=== PATIENT | male | born 1975 | race Two or more races ===

== ENCOUNTER 2025-08-01 09:30 | Outpatient (AMB) | payer OTHER, SELFPAY ==
--- NOTE | 2025-08-01 09:35 | A.PHYSOV_ITS ---
Vital Signs 08/01/25 09:36 Height 5 ft 9 in Weight 288 lb BMI 42.5 Intake Visit Reasons: NPV [facility] REF-LEFT LUMBAR Intake Note: Patient is a 50 year old male in office today as new patient for low back pain. Disabilities Caregiver Services: Disabilities Caregiver Offered & Declined Allergies No Known Allergies Allergy (Verified 08/01/25 09:37) HPI Comments Details: History of Present Illness The patient is a 50-year-old male presenting with back pain and left leg pain. The back pain began on May 28, 2025, with no specific inciting event noted, he was working in the [employer] when it happened. The pain radiates to the left leg, particularly affecting the left big toe, L5 dermatomal distribution, causing weakness. The patient has undergone an X-ray in the emergency room, but no MRI has been performed yet. I reviewed the emergency room records and primary care notes. X-rays of his chest were obtained, he did not have x-rays of lumbosacral spine. He has been using various medications including ibuprofen, methocarbamol, and oxycodone for pain management. The patient has been experiencing these symptoms for approximately two months and has been waiting for a specialist appointment. He was instructed on home exercises by his primary care physician. He has been performing physician guided home exercises for a couple of months. Pain Description - Onset: Pain began on May 28 - Quality: Radiating pain to the left leg - Location: Back and left leg, particularly the left big toe - Exacerbating factors: Not explicitly mentioned - Relieving factors: Use of ibuprofen, methocarbamol, and oxycodone Results - Imaging: X-ray performed in the emergency room [facility] Medical History (Updated 08/01/25 @ 10:00 by Deandre Bowles DO) Lumbar disc herniation Lumbar radiculitis Review of Systems Narrative Review of Systems - Musculoskeletal: Reports back pain and left leg pain - Neurological: Reports weakness in the left big toe Denies change in bowel and bladder habits, denies fever or chills Physical Exam Exam Exam: Physical Exam - Neurological: Weakness in the left big toe Gait was antalgic on the left side. Dural tension signs were positive on the left side. Neurological examination reveals weakness of the left EHL 3+/5. Patellar and Achilles reflexes were uniformly diminished, but symmetric. SI provocative maneuvers were negative. Pain with palpation over left lumbar paraspinal muscles. Vital Signs: BMI result Body Mass Index 42.5 Assessment & Plan Assessment & Plan (1) Lumbar radiculitis: Code(s): M54.16 - Radiculopathy, lumbar region Category: Medical (2) Lumbar disc herniation: Code(s): M51.26 - Other intervertebral disc displacement, lumbar region Category: Medical Plan Pain Management - Analgesia: Current medications include ibuprofen, methocarbamol, and oxycodone - Adverse Effects: None - Activities of Daily Living: Limited by pain, patient has been out of work on FMLA Plan Patient was informed and verbally consented to the use of an ambient scribe for clinic note documentation during this visit. 1. Back Pain The patient will be scheduled for an MRI and x-rays to further evaluate the cause of the back pain. Current pain management includes ibuprofen, methocarbamol, and oxycodone. 2. Left Leg Pain The left leg pain, particularly affecting the left big toe, will be further a ssessed with the planned MRI. Pain management currently involves ibuprofen, methocarbamol, and oxycodone. Discussion Notes I discussed with the patient the need for an MRI to further evaluate the back and left leg pain, as no MRI has been performed yet. We reviewed the current pain management regimen, which includes ibuprofen, methocarbamol, and oxycodone. The patient was informed about the process of obtaining insurance approval for the MRI and the expected timeline. To the best of my understanding [facility] paperwork has been submitted to his primary care office. I will be willing to fill out the paperwork if needed. Patient Instructions - Continue current pain medications as prescribed. - Await contact regarding MRI scheduling and insurance approval. Orders: Orders XR lumbar spine 4V min Today M51.26 - Other intervertebral disc displacement, lumbar region, M54.16 - Radiculopathy, lumbar region MR lumbar spine wo con Today M51.26 - Other intervertebral disc displacement, lumbar region, M54.16 - Radiculopathy, lumbar region Coding Level of Care Code New Pt Level 4 (41375) Complex EM visit Add On G2211 Diagnoses Lumbar radiculitis M54.16 Lumbar disc herniation M51.26
[2025-08-01 09:36] VITALS: BMI 42.5
--- OUTSIDE RECORDS SUMMARY | 2025-08-01 17:30 | XMS_ITS | Clinical Summary ---
Author Organization [facility] Address [address] [place], [place] [address] Phone Care Team Providers Care Pipe Fitter Ammonia Name Role Phone Rosanne Andrade Primary Care Provider [phone] Allergies No known active allergies Medications lisinopril (PRINIVIL,ZESTR IL) 20 MG tablet Take 20 mg by mouth. 0 Active ibuprofen (ADVIL,MOTRIN) 600 MG tablet Take 1 tablet (600 mg total) by mouth every 6 (six) hours as needed for pain (specific location in comments). 15 tablet 1 Active chlorhexidine (PERIDEX) 0.12 % solution Use as directed 15 mL in the mouth or throat 2 (two) times a day. 120 mL 1 Active nicotine (NICODERM CQ) 21 mg/[address] 1 patch onto the skin daily. Apply to a clean, dry, hairless site on the upper arm or hip. 14 patch 1 Active amoxicillin-cla vulanate (AUGMENTIN) 875-125 mg per tablet Take 1 tablet (875 mg of amoxicillin total) by mouth 2 (two) times a day. 10 tablet 1 Active Active Problems Problem Noted Date Diagnosed Date Dental abscess 07/22/2021 Odontogenic infection of jaw 07/22/2021 Immunizations Immunization Administration Dates Next Due Influenza Quadrivalent Prese rvative Free IM 07/24/2021(Deferred: Patient Refused) Social History Tobacco Use Types Packs/Day Years Used Date Smoking Tobacco: Every Day Smokeless Tobacco: Never Alcohol Use Standard Drinks/Week Comments Yes 0 (1 standard drink = 0.6 oz pur e alcohol) Education Answer Date Recorded Are you interested in more education? Not on ramakrishna e 01/09/2023 Are you concerned about learning? Not on file 01/09/2023 No 01/09/2023 No 01/09/2023 Digital Access Answer Date Recorded No 02/07/2023 No 02/07/2023 No 02/07/2023 Reliable internet access at home? Not on file 02/07/2023 Device with a working camera? Not on file Sex and Gender Information Value Date Recorded Sex Assigned at Not on file Legal Sex Male 5:58 PM EST Gender Identity Not on file Sexual Orientation Not on file Last Filed Vital Signs Vital Sign Reading Time Taken Comments Blood Pressure 160/103 07/24/2021 8:32 AM EST Lisinopril given as ordered Pulse 84 07/24/2021 8:32 AM EST Temperature 35.9 C (96.7 F) 07/24/2021 8:32 AM EST Respiratory Rate 16 07/24/2021 8:32 AM EST Oxygen Saturation 99% 07/24/2021 8:3 2 AM EST Inhaled Oxygen Concentration - - Weight 131.5 kg (290 lb) 07/22/2021 7:5 2 PM EST Height 167.6 cm (5' 6 ) 07/22/2021 7:52 PM EST Body Mass Index 46.81 07/22/2021 7:52 PM EST Plan of Treatment Health Maintenance Due Date Last Done Comments Adult Td,Tdap Booster 1975 DEPRESSION SCREENING 1987 SMOKING Hx and SMOKELESS TOBACCO SCREENING 1988 HEPATITIS C SCREENING 1993 HIV ONE-TIME SCREENING (18-6 5 YEARS) 1993 PNEUMOCOCCAL VACCINES (50+ years) (1 of 2 - PCV) 1994 COLOGUARD 2020 COLONOSCOPY 2020 COLORECTAL CANCER SCREENING 2020 FIT TEST 2020 FOBT 2020 SIGMOIDOSCOPY 2020 VIRTUAL COLONOSCOPY 2020 CREATININE LEVEL 07/24/2022 07/24/2021, 07/23/2021, 07/21/2021 POTASSIUM LEVEL 07/24/2022 07/24/2021, 07/23/2021, 07/21/2021 ZOSTER VACCINES (1 of 2) 2025 INFLUENZA VACCINE (#1) 2025 04/26/2017 COVID-19 VACCINE (1 - 2024-2 6 season) 2025 LIPID PANEL 06/11/2025 06/11/2020 RSV VACCINE (1 - 1-dose 75+ series) 2050 HEPATITIS A VACCINES Aged Out No long er eligible based on patient's age to complete this topic HIB VACCINES Aged Out No longer eligi ble based on patient's age to complete this topic IPV VACCINES Aged Out No longer eligi ble based on patient's age to complete this topic MENINGOCOCCAL VACCINES (ACWY) Aged Out No longer eligible based on patient's age to complete this topic MENINGOCOCCAL VACCINES (B) Aged Out N o longer eligible based on patient's age to complete this topic Medical Devices Not on file Procedures Procedure Name Priority Date/Time Associated Diagnosis Comments BASIC METABOLIC PANEL (BMP) Routine 07/24/2021 6:00 AM EST from Last 3 Months or Most Recently Relevant to Health Maintenance Results * (ABNORMAL) Basic metabolic panel (07/24/2021 6:00 AM EST) SODIUM 139 135 - 145 mmol/L [facility] POTASSIUM 3.9 3.4 - 5.0 mmol/L [facility] CHLORIDE 102 98 - 108 mmol/L [facility] CO2 19(L) 23 - 32 mmol/L [facility] BUN 9 8 - 25 mg/dL [facility] CREATININE 0.66 0.60 - 1.50 mg/dL [facility] GLUCOSE 80 70 - 110 mg/dL [facility] CALCIUM 8.9 8.5 - 10.5 mg/dL [facility] EGFR 116 >59 mL/min/1.7 3m2 [facility] Comment:Estimated glomerular filtration rate calculated using the CKD-EPI equation. ANION GAP 18(H) 3 - 17 mmol/L [facility] Blood 07/24/2021 6:00 AM EST 07/24/2021 7:04 AM EST us Alexandr Najera MD LAB BLOOD [place]KR [place] [address] from Last 3 Months or Most Recently Relevant to Health Maintenance Insurance HE[employer]ETY NET PARTIAL HEALTH SAFETY NET PARTIAL HEALTH SAFETY NET PARTIAL HEALTH SAFETY NET PARTIAL HEALTH SAFETY NET PARTIAL HEALTH SAFETY NET PARTIAL HEALTH SAFETY NET PARTIAL HEALTH SAFETY NET PARTIAL HEALTH SAFETY NET PARTIAL Advance Directives For more information, please contact: [phone] (9AM - 5PM [place], Wednesday-Wednesday) * Full Code (Latest Code Status on File) Date Activated Date Inactivated Comments 07/22/2021 8:33 AM Question Answer Comments Code Status Confirmed With: Patient Code Status Communicated To: Inpatient Attending Care Teams Pipe Fitter Ammonia Relationship Specialty Start Date End Date Rosanne Andrade PA [facility] [place] [address] PCP - General Internal Medicine 07/21/21 Additional Source Comments The information contained in this document represents components of the legal health record. It is not the complete legal health record.[facility]
== END 2025-08-01 10:00 | disposition home or self-care (01) ==
LOC: HO.HPHYS 09:30
PROVIDERS: PCP Physician Assistant; Visit Provider Physical Medicine & Rehabilitation
DX: M54.16 Radiculopathy, lumbar region (principal); M51.26 Other intervertebral disc displacement, lumbar region
CPT/HCPCS: 99204; G2211

== ENCOUNTER 2025-08-01 09:30 | Outpatient (REF) | payer OTHER, SELFPAY ==
--- NOTE | ~2025-08-01 | XR_ITS ---
EXAMINATION: XR LUMBOSACRAL SPINE WITH OBLIQUES CLINICAL INFORMATION: M54.16 - Radiculopathy, lumbar region COMPARISON: None available. TECHNIQUE: AP oblique and lateral views FINDINGS: Multilevel marginal osteophyte formation and syndesmophyte formation. Multilevel endplate sclerosis and decreased intervertebral disc height throughout the axial skeleton pronounced at L4-5 and L5-S1 as well as the lower thoracic spine. Hypertrophy of the facet joints at L5-S1. Prominent transverse processes of L5 extending to the iliac crests. S-shaped curvature of the thoracolumbar spine. No acute cortical disruption or gross malalignment. Vascular clips in the right upper quadrant abdomen. XR/XR lumbar spine 4V min IMPRESSION: Multilevel thoracolumbar spondylosis, moderate to severe. Electronically signed by: Hood Duque MD 08/01/2025 11:03 AM [facility]
== END 2025-08-01 09:31 | disposition home or self-care (01) ==
LOC: HO.XRAY 09:30
PROVIDERS: PCP Physician Assistant; Visit Provider Physical Medicine & Rehabilitation
DX: M51.16 Intervertebral disc disorders with radiculopathy, lumbar region (principal); Z79.1 Long term (current) use of non-steroidal anti-inflammatories (NSAID); Z79.891 Long term (current) use of opiate analgesic
CPT/HCPCS: 72110

== ENCOUNTER → 2025-08-01 10:31 | Outpatient (BNV) | payer OTHER, SELFPAY | PROVIDERS: PCP Physician Assistant; Visit Provider Radiology Diagnostic Radiology | DX: M47.25 Other spondylosis with radiculopathy, thoracolumbar region (principal) | CPT/HCPCS: 72110 ==

== ENCOUNTER 2025-08-30 13:41 | Outpatient (AMB) | payer OTHER, SELFPAY ==
[2025-08-30 13:42] VITALS: BMI 42.5
--- NOTE | 2025-08-30 13:42 | A.PHYSOV_ITS ---
Vital Signs 08/30/25 13:42 Height 5 ft 9 in Weight 288 lb BMI 42.5 Intake Visit Reasons: MRI followup Intake Note: Patient is a 50 year old male in office today for a follow up after mri. Allergies No Known Allergies Allergy (Verified 08/30/25 13:44) HPI Comments Details: History of Present Illness The patient is a 50 year old male presenting with a follow-up for persistent lower back and left leg pain. He reports pain radiating down his left leg in an L5 dermatomal distribution. He reports a similar episode approximately 13 years ago, which resolved for years after receiving an injection. For the current symptoms, he has been performing physician-guided home exercises and takes ibuprofen, methocarbamol, and oxycodone for pain. The pain is exacerbated by prolonged standing and improves with sitting. He has been out of work for three months due to the pain. He returns with the results of the lumbosacral spine MRI from 08/16/2025 demonstrating moderate central canal stenosis at the L4-L5 level and moderate to severe neural foraminal stenosis at the L4-L5 level and severe bilateral neural foraminal narrowing at the L5-S1 level with encroachment of exiting bilateral L5 nerve roots. Pain Description - Location: Lower back and left leg. - Radiation: Pain radiates down the left leg into the great toe, following an L5 dermatomal distribution. - Exacerbating Factors: Pain is worse with prolonged standing. - Relieving Factors: Pain is relieved with sitting. - Interference with function: The patient has been unable to work for 3 months due to his pain. Results - Imaging: - Lumbar spine MRI (08/16/2025): Findings were independently reviewed and showed degenerative changes, moderate central canal stenosis at L4-L5, moderate to severe bilateral neuroforaminal narrowing at L4-L5, and severe bilateral neuroforaminal narrowing at L5-S1 with encroachment of the bilateral L5 nerve roots. [facility] Medical History (Updated 08/30/25 @ 14:12 by Deandre Bowles DO) Spinal stenosis, lumbar region with neurogenic claudication Lumbar disc herniation Lumbar radiculitis Surgical History (Updated 08/30/25 @ 13:46 by Belen Snow MA) History of surgery on arm History of bladder surgery Social History (Updated 08/30/25 @ 13:45 by Belen Snow MA) Household Members: Spouse Alcohol intake: current Alcohol intake frequency: does not drink Patient Tobacco Use Status: Current everyday Tobacco user Use of substances other than those prescribed or required for medical reasons: No Current occupational status: employed Current occupation: multimedia coordinator Review of Systems Narrative Review of Systems - Musculoskeletal: Reports persistent lower back pain. - Neurological: Reports pain radiating into the left leg and great toe. - All other systems were reviewed and are negative. Physical Exam Exam Exam: Physical Exam - Constitutional: Alert and oriented. - Musculoskeletal: Movement of the left leg was assessed. - Neurological: Pain is localized to the L5 dermatome distribution, affecting the great toe of the left foot. Neurological examination reveals mild weakness of the left EHL. He was able to ambulates without antalgia. Gait was waddling. Heel walk and toe walk were not tested. Dural tension signs were negative. Patient demonstrated no upper motor neuron signs. Vital Signs: BMI result Body Mass Index 42.5 Assessment & Plan Assessment & Plan (1) Lumbar radiculitis: Code(s): M54.16 - Radiculopathy, lumbar region Category: Medical (2) Lumbar disc herniation: Code(s): M51.26 - Other intervertebral disc displacement, lumbar region Category: Medical (3) Spinal stenosis, lumbar region with neurogenic claudication: Code(s): M48.062 - Spinal stenosis, lumbar region with neurogenic claudication Category: Medical Plan Pain Management - Analgesia: The patient currently uses ibuprofen, methocarbamol, and oxycodone. - He was previously prescribed oxycodone 5 mg in May. - Affect: The patient expressed frustration with being out of work and the timing of his visit during the holidays, which delays further intervention. - Activities of Daily Living: His pain has prevented him from working for the past 3 months. - Adverse effects: Not discussed. - Aberrant Drug-Related Behaviors: None noted. Plan Patient was informed and verbally consented to the use of an ambient scribe for clinic note documentation during this visit. Low Back Pain With Left-Sided Radiculopathy The patient's persistent low back and left leg pain is consistent with the lumbar spine MRI findings from August 16, 2025, which show significant degenerative changes. Specifically, he has moderate central canal stenosis and lkhqiaoy-yp-ecktcj bilateral neuroforaminal narrowing at L4-L5, as well as severe bilateral neuroforaminal narrowing at L5-S1 with L5 nerve root encroachment, which explains his radicular symptoms. Treatment options were discussed, including continuing conservative management, proceeding with a therapeutic injection, or obtaining a surgical consultation. The patient elected to proceed with a guided injection, given his positive response to a similar intervention over a decade ago. An appointment for the left L5 transforaminal epidural steroidal injection will be scheduled, pending insurance authorization from [employer], which will likely take place after the . As a bridging therapy, a prescription for a higher dose of oxycodone will be provided, as his current regimen is providing insufficient relief. Risks and benefits of the procedure were discussed with the patient. Potential alternative measures were also discussed. Patient understands that the procedure is completely elective. Potential side effects associated with injectable medications were discussed. All questions were answered to the kyrstal phillips's satisfaction. Discussion Notes I reviewed the patient's recent lumbar spine MRI results with him, explaining that the findings of lizowhnj-li-rmtbqd stenosis at L4-L5 and L5-S1 are consistent with a pinched nerve causing his left leg pain. I clarified that this is a chronic issue that has developed over many years. We discussed three primary treatment options: no intervention, a guided steroid injection, or a surgical consultation. The patient recalled a positive outcome from an injection about 13 years ago and agreed to try this option again. I informed him that the procedure requires insurance pre-authorization and cannot be scheduled immediately due to the upcoming holidays and my personal leave, with the earliest availability being after the . I agreed to prescribe a stronger dose of oxycodone to help manage his pain in the interim and acknowledged that medication alone is unlikely to be a permanent solution for a mechanical issue like a pinched nerve. We will proceed with requesting authorization for the injection, and the patient understands he can cancel the appointment if the new medication resolves his symptoms completely. Patient Instructions - You will be given a prescription for a stronger pain medicine. - Take this as directed to help with your pain until we can do the procedure. - Continue doing your home exercises for your back. - My office will contact your insurance, [employer], to get approval for an injection in your lower back. - We will call you to schedule this injection, but it will likely be after the hol. - If the new medicine makes your pain go away completely, you can call us to cancel the injection appointment. Medications: New oxycodone-acetaminophen 7.5-325 mg Partial Fill upon patient request. 1 tab PO Q6H PRN 28 tabs 0RF pain 7 days M48.062 - Spinal stenosis, lumbar region with neurogenic claudication, M51.26 - Other intervertebral disc displacement, lumbar region, M54.16 - Radiculopathy, lumbar region Coding Level of Care Code Est Pt Level 4 (58329) Add On Problem Visit Only Diagnoses Lumbar radiculitis M54.16 Lumbar disc herniation M51.26 Spinal stenosis, lumbar region with neurogenic claudication M48.062
--- OUTSIDE RECORDS SUMMARY | 2025-08-30 17:54 | XMS_ITS | Clinical Summary ---
Author Organization [facility] Address [address] [place], [place] [id number] Phone Care Team Providers Care Skin Installer Name Role Phone Rosanne Andrade PA-C Primary Care Provider Allergies No known active allergies Medications lisinopril [...] EST) SODIUM 139 135 - 145 mmol/L [facility] POTASSIUM 3.9 3.4 - 5.0 mmol/L [facility] CHLORIDE 102 98 - 108 mmol/L [facility] CO2 19(L) 23 - 32 mmol/L [facility] BUN 9 8 - 25 mg/dL [facility] CREATININE 0.66 0.60 - 1.50 mg/dL [facility] GLUCOSE 80 70 - 110 mg/dL [facility] CALCIUM 8.9 8.5 - 10.5 mg/dL [facility] EGFR 116 >59 mL/min/1.7 3m2 [facility] Comment:Estimated glomerular filtration rate calculated using the CKD-EPI equation. ANION GAP 18(H) 3 - 17 mmol/L [facility] Blood 07/24/2021 6:00 AM EST 07/24/2021 7:04 AM EST us Alexandr Najera MD LAB BLOOD BKR ORDERABLES Final R esult [address] [address] from Last 3 Months or Most Recently Relevant to Health Maintenance Insurance HEALTH S[employer] NET PARTIAL HEALTH SAFETY NET PARTIAL HEALTH SAFETY NET PARTIAL HEALTH SAFETY NET PARTIAL HEALTH SAFETY NET PARTIAL HEALTH SAFETY NET PARTIAL HEALTH SAFETY NET PARTIAL HEALTH SAFETY NET PARTIAL HEALTH SAFETY NET PARTIAL Advance Directives For more information, please contact: [phone] (9AM - 5PM [place]/[facility], Wednesday-Wednesday) * Full Code (Latest Code Status on File) Date Activated Date Inactivated Comments 07/22/2021 8:33 AM Question Answer Comments Code Status Confirmed With: Patient Code Status Communicated To: Inpatient Attending Care Teams Skin Installer Relationship Specialty Start Date End Date Rosanne Andrade PA-C [facility] [place] [address] PCP - General Internal Medicine 07/21/21 Additional Source Comments The information contained in this document represents components of the legal health record. It is not the complete legal health record.[facility]
--- OUTSIDE RECORDS SUMMARY | 2025-08-30 17:54 | XMS_ITS | Clinical Summary ---
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 Role Phone Unavailable Primary Care Provider Unavailabl e Encounters Date Type Department Care Team Description 08/16/2025 6:36 PM EST - 08/16/2025 11:59 PM EST Hospital Encounter [facility] MRI [address] [place] [address] Radiculopathy Discharge Disposition: Home or Self Care from Last 3 Months Social History Tobacco Use Types Packs/Day Years Used Date Smoking Tobacco: Never Assessed Sex and Gender Information Value Date Recorded Sex Assigned at Not on file Legal Sex Male 11:12 PM EST Gender Identity Not on file Sexual Orientation Not on file Plan of Treatment Health Maintenance Due Date Last Done Comments Colorectal Cancer Screening: Colonoscopy 1975 DTaP,Tdap,and Td Vaccines (1 - Tdap) 1994 Hepatitis B Vaccines (1 of 3 - 19+ 3-dose series) 1994 Depression Screening 09/13/2024 Pneumococcal Vaccine: 50+ Years (1 of 1 - PCV) 2025 RSV Immunization Adult Patients (1 - Risk 50-74 years 1-dose series) 2025 Zoster Vaccines (1 of 2) 2025 COVID-19 Vaccine (1 - 2024- season) 2025 Influenza Vaccine (#1) 2025 04/26/2017 Hepatitis C Screening 08/16/2025 Social Influencers of Health Screening 08/16/2025 Hypertension/CHF/CAD Annual BMP Blood Test 07/10/2026 07/10/2025 Cholesterol Screening (Lipid Panel) 07/10/2030 07/10/2025, 07/10/2025, 05/17/2024, Additional history exists HIV Screening Completed 10/22/2015 HIB Vaccines Aged Out No longer eligi ble based on patient's age to complete this topic HPV Vaccines Aged Out No longer eligi ble based on patient's age to complete this topic Hepatitis A Vaccines Aged Out No long er eligible based on patient's age to complete this topic IPV Vaccines Aged Out No longer eligi ble based on patient's age to complete this topic MMR Vaccines Aged Out No longer eligi ble based on patient's age to complete this topic Meningococcal ACWY Vaccine Aged Out N o longer eligible based on patient's age to complete this topic Meningococcal B Vaccine Aged Out No l onger eligible based on patient's age to complete this topic RSV Immunization Patients Under 20 months Aged Out No longer eligible based on patient's age to complete this topic Varicella Vaccines Aged Out No longer eligible based on patient's age to complete this topic Procedures Procedure Name Priority Date/Time Associated Diagnosis Comments MR LUMBAR SPINE WO CONTRAST Routine 08/16/2025 7:36 PM EST Radiculopathy from Last 3 Months Results * MR Lumbar Spine wo Contrast (08/16/2025 7:36 PM EST) Anatomical Region Laterality Modality L-spine, Spine Magnetic Resonan ce 08/21/2025 3:56 AM EST Impressions 08/21/2025 4:01 AM EST Multilevel lumbar spondylosis, most significant at L4-L5 and L5-S1, as above -------- FINAL REPORT -------- Dictated By: Dalia Bonilla Dictated Date: 08/21/2025 03:56 ET Assigned Physician: Dalia Bonilla Reviewed and Electronically Signed By: Dalia Bonilla Signed Date: 08/21/2025 04:01 ET Workstation ID: [id number] Transcribed By: Self Edit Transcribed Date: 08/21/2025 03:56 ET Narrative 08/21/2025 4:01 AM EST INDICATION: Left lumbar radiculopathy COMPARISON: Radiographs dated April 2009 TECHNIQUE: Multiplanar, multisequence MRI was performed of the lumbar spine without IV contrast. FINDINGS: Study assumes 5 lumbar type vertebral bodies. Vertebral body heights and alignment are preserved. Conus terminates at L1-L2. Bone marrow and cord signal is unremarkable. Multilevel disc desiccation at L3-L4, L4-L5 and L5-S1. Minimal grade 1 anterolisthesis of T12 on L1 and grade 1 retrolisthesis of L4 on L5. Specific findings are seen at the following levels: T12-L1:Mild diffuse disc bulge with facet arthropathy without significant spinal canal stenosis or neural foraminal narrowing. L1-L2:No significant spinal canal stenosis or neural foraminal narrowing. Facet arthropathy. L2-L3:Facet arthropathy. No significant spinal canal stenosis or neural foraminal narrowing. L3-L4:Diffuse disc bulge with ligamentum flavum infolding and facet arthropathy which effaces the ventral thecal sac without significant spinal canal stenosis. Mild bilateral neural foraminal narrowing. L4-L5:Focal disc protrusion which extends inferiorly to the L5 vertebral body with ligamentum flavum infolding and facet arthropathy which results in moderate spinal canal stenosis and moderate to severe bilateral neural foraminal narrowing. L5-S1:Focal central disc protrusion with facet arthropathy which effaces the ventral thecal sac and results in moderate to severe bilateral neural foraminal narrowing with touching of the bilateral exiting L5 nerve roots. Miscellaneous: T2 hyperintense lesion in the left kidney which statistically represents a cyst. Procedure Note Dalia Bonilla MD - 08/21/2025 INDICATION: Left lumbar radiculopathy COMPARISON: Radiographs dated April 2009 TECHNIQUE: Multiplanar, multisequence MRI was performed of the lumbarspine without IV contrast. FINDINGS: Study assumes 5 lumbar type vertebral bodies. Vertebral body heights andalignment are preserved. Conus terminates at L1-L2. Bone marrow and cordsignal is unremarkable. Multilevel disc desiccation at L3-L4, L4-L5 andL5-S1. Minimal grade 1 anterolisthesis of T12 on L1 and grade 1retrolisthesis of L4 on L5. Specific findings are seen at the followinglevels: T12-L1:Mild diffuse disc bulge with facet arthropathy without significantspinal canal stenosis or neural foraminal narrowing. L1-L2:No significant spinal canal stenosis or neural foraminal narrowing.Facet arthropathy. L2-L3:Facet arthropathy. No significant spinal canal stenosis or neuralforaminal narrowing. L3-L4:Diffuse disc bulge with ligamentum flavum infolding and facetarthropathy which effaces the ventral thecal sac without significantspinal canal stenosis. Mild bilateral neural foraminal narrowing. L4-L5:Focal disc protrusion which extends inferiorly to the L5 vertebralbody with ligamentum flavum infolding and facet arthropathy which resultsin moderate spinal canal stenosis and moderate to severe bilateral neuralforaminal narrowing. L5-S1:Focal central disc protrusion with facet arthropathy which effacesthe ventral thecal sac and results in moderate to severe bilateral neuralforaminal narrowing with touching of the bilateral exiting L5 nerveroots. Miscellaneous: T2 hyperintense lesion in the left kidney whichstatistically represents a cyst. IMPRESSION: Multilevel lumbar spondylosis, most significant at L4-L5 and L5-S1, asabove -------- FINAL REPORT -------- Dictated By: Dalia Bonilla Dictated Date: 08/21/2025 03:56 ET Assigned Physician: Dalia Bonilla Reviewed and Electronically Signed By: Dalia Bonilla Signed Date: 08/21/2025 04:01 ET Workstation ID: [id number] Transcribed By: Self Edit Transcribed Date: 08/21/2025 03:56 ET us Rosanne [facility]JERA IMG MRI PROCEDURES Final Resul t from Last 3 Months
== END 2025-08-30 14:15 | disposition home or self-care (01) ==
PROVIDERS: PCP Physician Assistant; Visit Provider Physical Medicine & Rehabilitation
DX: M54.16 Radiculopathy, lumbar region (principal); M51.26 Other intervertebral disc displacement, lumbar region; M48.062 Spinal stenosis, lumbar region with neurogenic claudication
CPT/HCPCS: 99214; G2211